=== PATIENT | female | born 1985 | race Two or more races ===

== ENCOUNTER 2017-05-06 08:28 | Emergency (ER) | payer MEDICAID, OTHER ==
[~2017-05-06] VITALS: Ht 170.2 cm; Wt 99.8 kg
[2017-05-06 08:44] VITALS: BP 157/83
== END 2017-05-06 09:22 | disposition home or self-care (01) ==
LOC: ER 08:28
DX: T75.4XXA Electrocution, initial encounter (principal); W86.8XXA Exposure to other electric current, initial encounter; Y93.89 Activity, other specified; Y99.8 Other external cause status; Y92.89 Other specified places as the place of occurrence of the external cause